=== PATIENT | male | born 1955 | race Caucasian/White ===

== ENCOUNTER 2019-11-15 19:43 | Inpatient (IN) ==
[2019-11-15 20:54] LABS: URINE SOURCE CLEAN CATCH
[2019-11-15 20:58] LABS: BASO# 0.01 X1000 (0.0-0.2); BASO% 0.2 % (0.0-0.8); EOS# 0.01 X1000 (0.0-0.7); EOS% 0.2 % (0.0-10.0); HEMATOCRIT 35.9 % (42.0-52.0); HEMOGLOBIN 11.3 g/dL (14.0-18.0); LYMPH# 1.05 X1000 (1.2-3.4); LYMPH% 17.9 % (20.5-51.1); MCH 31.7 PG (27-31); MCHC 31.5 g/dL (33-37); MCV 100.8 FL (81-99); MONO# 0.44 X1000 (0.11-0.59); MONO% 7.5 % (1.7-9.3); MPV 8.9 FL (7.4-10.4); NEUT# 4.35 X1000 (1.4-6.5); NEUT% 74.2 % (42.2-75.2); PLT 301 X1000 (130-400); RBC 3.56 XMIL (4.7-6.1); RDW 17.3 % (11.5-14.5); WBC 5.86 X1000 (4.8-10.8)
[2019-11-15 21:07] LABS: INR 1.87; PROTIME 21.9 Seconds (11.0-16.0)
[2019-11-15 21:08] LABS: PTT 57.4 Seconds (22.3-41.8)
[2019-11-15 21:15] LABS: BILIRUBIN URINE NEGATIVE (NEGATIVE); BLOOD URINE TRACE (NEGATIVE); COLOR YELLOW; GLUCOSE URINE NEGATIVE (NEGATIVE); KETONE URINE TRACE mg/dL (NEGATIVE); LEUKOCYTES URINE NEGATIVE (NEGATIVE); NITRITE URINE NEGATIVE (NEGATIVE); PH URINE 5.5; PROTEIN URINE 30 mg/dL (NEGATIVE); SP GRAVITY URINE 1.032; TURBIDITY URINE CLEAR (CLEAR); UR EPITHELIAL CELLS <10 /HPF (<10); URINE BACTERIA NEGATIVE /HPF; URINE RBC <10 /HPF (<10); URINE WBC <10 /HPF (<10); UROBILINOGEN URINE NORMAL (NORMAL)
--- NOTE | 2019-11-15 21:27 | Diag Imaging Result Doc PS360 ---
EXAM: CHEST-PORTABLE INDICATION: sob TECHNIQUE: One view COMPARISON: 10/03/2017 FINDINGS: There is a calcified granuloma at the left costophrenic angle. The lungs are grossly clear. There is no discrete pleural fluid collection or pneumothorax. The cardiomediastinal silhouette and central vasculature are grossly unremarkable. IMPRESSION: No evidence of acute pathology by plain radiograph. Electronically signed by Chester Darling 11/15/2019 9:24 PM
[2019-11-15] MEDS ORDERED: DUONEB (A & A) INH ONE (21:29)
[2019-11-15] MEDS ORDERED: SOLU-MEDROL IV ONE (21:29)
[2019-11-15 21:35] LABS: AGAP 18; ALB/GLOB RATIO 1.4; ALKALINE PHOSPHATASE 62 U/L (32-122); BUN 37 mg/dL (8-22); CALCIUM 8.6 mg/dL (8.8-10.2); CHLORIDE 100 mmol/L (98-107); COSMO 287; CREATININE 1.4 mg/dL (0.7-1.2); ESTIMATED GFR 51; GLUCOSE 87 mg/dL (70-104); GOT 16 U/L (10-34); GPT 5 U/L (10-44); SODIUM 140 mmol/L (136-145); TCO2 22 mmol/L (25-35); TOTAL PROTEIN 6.8 g/dL (6.3-8.3)
[2019-11-15 21:39] LABS: CK PROFILE 228 U/L (24-204); TOTAL BILIRUBIN < 0.15 mg/dL (0.20-1.00)
[2019-11-15 23:13] LABS: CK INDEX 2.9 (0.0-2.5); CK-MB 6.51 ng/mL (0.0-5.0)
--- NOTE | 2019-11-16 00:20 | PROVIDER DOCUMENTATION ---
This chart was entered by Megan Darling Scribe, acting as scribe for Blanca Rose MD. HPI-Respiratory General - General Chief Complaint: Shortness of Breath Stated Complaint: SOB AMS Time Seen by Provider: 11/15/19 20:00 Source: RN/ Allergies/Adverse Reactions: Patient Allergies Allergy/AdvReac Type Severity Reaction Status Date / Time acetaminophen [From Lortab] Allergy Intermediate HIVES Verified 08/02/18 21:29 hydrocodone bitartrate * Allergy Intermediate HIVES Verified 08/02/18 21:29 [From Lortab] Home Medications: Home Medication List Medication Instructions Recorded Confirmed Last Taken Type Alprazolam [Xanax] 0.5 mg PO HS 09/03/16 09/03/16 11/15/19 History Amlodipine [Norvasc] 5 mg PO DAILY 09/03/16 09/03/16 Unknown History Buspirone [Buspar] 10 mg PO BID 09/03/16 09/03/16 Unknown History Fenofibrate [Tricor] 160 mg PO DAILY 09/03/16 09/03/16 Unknown History Losartan [Cozaar] 12.5 mg PO DAILY 09/03/16 09/03/16 Unknown History Montelukast [Singulair] 10 mg PO QHS 09/03/16 09/03/16 Unknown History PRAVAstatin [Pravachol] 80 mg PO DAILY 09/03/16 09/03/16 Unknown History Tadalafil [Cialis] 5 mg PO 09/03/16 Unknown History Venlafaxine E.r. [Effexor Xr] 150 mg PO DAILY 09/03/16 09/03/16 Unknown History Zolpidem Tartrate [Ambien] 10 mg PO HS 09/03/16 09/03/16 Unknown History Diltiazem C.d. [Cardizem C.d] 180 mg PO DAILY #30 capsule 09/08/16 Unknown Rx Levofloxacin [Levaquin] 750 mg PO DAILY #7 tablet 09/08/16 Unknown Rx Prednisone 20 mg PO BID #10 tab 08/03/18 Unknown Rx - History of Present Illness-Resp Nature of Presenting Problem: 64 yom c/o increasing sob for few days. pt is poor hx. no cp, fever, or chills. Quality of Pain: reports: none Severity in ED: reports: mild Onset/Duration: reports: other Timing: reports: still present, getting worse Cough Quality/Degree: reports: no cough Current Respiratory Medication Therapy: Initiated see nurses note Modifying Factors: improves with: nothing Associated Symptoms: reports: short of breath Review of Systems - Adult - REVIEW OF SYSTEMS - ADULT Constitutional: reports: no symptoms reported. denies: chills, fever, fatique Eyes: reports: no symptoms reported Ears, Nose, Mouth & Throat: reports: no symptoms reported Cardiovascular: reports: no symptoms reported Respiratory: reports: see HPI, shortness of breath. denies: cough, excessive sputum production, hemoptysis Gastrointestinal: reports: no symptoms reported Genitourinary: reports: no symptoms reported Musculoskeletal: reports: no symptoms reported Integumentary: reports: no symptoms reported Neurological: reports: no symptoms reported Psychiatric: reports: no symptoms reported Endocrine: reports: no symptoms reported Hematologic/Lymphatic: reports: no symptoms reported Allergic/Immunologic: reports: no symptoms reported All Other Systems: Reviewed and Negative Past History - Adult - PAST MEDICAL HISTORY-ADULT Review of Records: reports: Nursing Assessment Review, Medications Reviewed, Social history reviewed & non-contributory. Major Childhood Illnesses: reports: denies history Cardiovascular: reports: HTN, hyperlipidemia Respiratory: reports: COPD Gastrointestinal: reports: denies history Obstetrical/Gynecological: reports: denies history Genitourinary: reports: denies history Musculoskeletal: reports: denies history Neurological: reports: denies history Psychiatric: reports: denies history Endocrine/Immune: reports: denies history Other Conditions: reports: denies history - PRIOR SURGERIES/PROCEDURES Surgical/Procedure History: reports: reviewed, not pertinent, back/neck (back) - IMMUNIZATION STATUS Childhood Immunizations: See Nurse Assessment Flu Vaccine: See Nurse Assessment - FAMILY HISTORY Family History: reviewed, not pertinent - SOCIAL HISTORY Smoking: cigarettes, greater than 1 pack/day Substance Use: alcohol Alcohol Use Frequency: occasionally Physical Exam-General - PHYSICAL EXAM-ADULT Initial Vital Signs Reviewed: Yes - CONSTITUTIONAL General Appearance: alert, mild distress, slow to respond. negative: lethargic, combative - EYES Eyes: PERRL/EOMI - HEAD, EARS, NOSE, MOUTH & THROAT HENMT: normocephalic/atraumatic, moist mucous membranes - NECK Neck: non-tender, full range of motion, supple, normal inspection - RESPIRATORY Respiratory: chest non-tender, normal breath sounds, no pleuratic chest pain, no respiratory distress, no accessory muscle use, wheezing (diffusely and bilat). negative: lungs clear, crackles, rales - CARDIOVASCULAR Cardiovascular: normal peripheral pulses, regular rate, rhythm - GASTROINTESTINAL (ABDOMEN) Abdominal Exam: normal bowel sounds, non tender, soft - MUSCULOSKELETAL Back Exam: normal inspection Extremity: normal range of motion, non-tender, normal inspection - SKIN Integumentary: normal color, normal turgor, warm/dry Progress - PLAN OF CARE/RESULTS Progress/Plan/Lab Results: Vital Signs - 8 hr 11/15/19 19:45 11/15/19 21:30 11/15/19 22:30 Temperature 97.7 F 98.6 F Pulse Rate 60 57 L 60 Respiratory Rate 24 20 20 Blood Pressure 121/80 125/58 119/53 O2 Sat by Pulse Oximetry 91 L 92 L 95 11/15/19 23:30 Temperature Pulse Rate 57 L Respiratory Rate 20 Blood Pressure 97/58 O2 Sat by Pulse Oximetry 97 Laboratory Results - last 24 hr 11/15/19 11/15/19 11/15/19 20:15 20:20 20:20 WBC RBC Hgb Hct MCV MCH MCHC RDW Std Deviation Plt Count MPV Neut % (Auto) Lymph % (Auto) Sampson % (Auto) Eos % (Auto) Baso % (Auto) Neut # (Auto) Lymph # (Auto) Sampson # (Auto) Eos # (Auto) Baso # (Auto) PT INR PTT (Actin FS) Sodium 140 Potassium 4.0 Chloride 100 Carbon Dioxide 22 L Anion Gap 18 BUN 37 H Creatinine 1.4 H Estimated GFR/1.73 m2 51 BUN/Creatinine Ratio 26 Glucose 87 Calculated Osmolality 287 Calcium 8.6 L Total Bilirubin < 0.15 L AST 16 ALT 5 L Alkaline Phosphatase 62 Creatine Kinase 228 H Creatine Kinase Index 2.9 H CK-MB (CK-2) 6.51 H Troponin T High Sens Yuh-P-Qbrzxoaermn Pept 585 H Total Protein 6.8 Albumin 4.0 Globulin 2.8 Albumin/Globulin Ratio 1.4 Plasma Lactate Urine Source CLEAN CATCH Urine Color YELLOW Urine Turbidity CLEAR Urine pH 5.5 Ur Specific Johnston 1.032 Urine Protein 30 A Ur Glucose (Stick) NEGATIVE Ur Ketones (Stick) TRACE A Urine Blood TRACE A Urine Nitrite NEGATIVE Urine Bilirubin NEGATIVE Urobilinogen Dipstick NORMAL Urine Leukocytes NEGATIVE Urine WBC (Auto) <10 Urine RBC (Auto) <10 U Epithel Cells (Auto) <10 Urine Bacteria (Auto) NEGATIVE 11/15/19 11/15/19 11/15/19 20:20 20:20 20:20 WBC 5.86 RBC 3.56 L Hgb 11.3 L Hct 35.9 L MCV 100.8 H MCH 31.7 H MCHC 31.5 L RDW Std Deviation 17.3 H Plt Count 301 MPV 8.9 Neut % (Auto) 74.2 Lymph % (Auto) 17.9 L Sampson % (Auto) 7.5 Eos % (Auto) 0.2 Baso % (Auto) 0.2 Neut # (Auto) 4.35 Lymph # (Auto) 1.05 L Sampson # (Auto) 0.44 Eos # (Auto) 0.01 Baso # (Auto) 0.01 PT 21.9 H INR 1.87 PTT (Actin FS) 57.4 H Sodium Potassium Chloride Carbon Dioxide Anion Gap BUN Creatinine Estimated GFR/1.73 m2 BUN/Creatinine Ratio Glucose Calculated Osmolality Calcium Total Bilirubin AST ALT Alkaline Phosphatase Creatine Kinase Creatine Kinase Index CK-MB (CK-2) Troponin T High Sens 24 H [id number]-Unqcpgcahoz Pept Total Protein Albumin Globulin Albumin/Globulin Ratio Plasma Lactate Urine Source Urine Color Urine Turbidity Urine pH Ur Specific Johnston Urine Protein Ur Glucose (Stick) Ur Ketones (Stick) Urine Blood Urine Nitrite Urine Bilirubin Urobilinogen Dipstick Urine Leukocytes Urine WBC (Auto) Urine RBC (Auto) U Epithel Cells (Auto) Urine Bacteria (Auto) 11/15/19 20:20 WBC RBC Hgb Hct MCV MCH MCHC RDW Std Deviation Plt Count MPV Neut % (Auto) Lymph % (Auto) Sampson % (Auto) Eos % (Auto) Baso % (Auto) Neut # (Auto) Lymph # (Auto) Sampson # (Auto) Eos # (Auto) Baso # (Auto) PT INR PTT (Actin FS) Sodium Potassium Chloride Carbon Dioxide Anion Gap BUN Creatinine Estimated GFR/1.73 m2 BUN/Creatinine Ratio Glucose Calculated Osmolality Calcium Total Bilirubin AST ALT Alkaline Phosphatase Creatine Kinase Creatine Kinase Index CK-MB (CK-2) Troponin T High Sens Rcj-[id number]-Oztrdskwmbi Pept Total Protein Albumin Globulin Albumin/Globulin Ratio Plasma Lactate 0.6 Urine Source Urine Color Urine Turbidity Urine pH Ur Specific Johnston Urine Protein Ur Glucose (Stick) Ur Ketones (Stick) Urine Blood Urine Nitrite Urine Bilirubin Urobilinogen Dipstick Urine Leukocytes Urine WBC (Auto) Urine RBC (Auto) U Epithel Cells (Auto) Urine Bacteria (Auto) Orders Category Date Time Status Cardiac Monitoring DIRECTED Care 11/15/19 20:03 Active Isolation [Isolation Precautions Setup] NOW Care 11/15/19 20:09 Active NEWS Score 2-4:Order NEWS Lactate Series NOW Care 11/15/19 19:57 Active Oxygen Therapy- ED Nursing DIRECTED Care 11/15/19 20:03 Active CHEST-PORTABLE [RAD] Stat Exams 11/15/19 20:16 Completed BLOOD CULTURE [BLDCUL] Stat Lab 11/15/19 20:30 Results CBC WITH ELECTRONIC DIFF [HEME] Stat Lab 11/15/19 20:20 Completed CK PROFILE [SP CHEM] Stat Lab 11/15/19 20:20 Completed COMPREHENSIVE METABOLIC PANEL [CHEM] Stat Lab 11/15/19 20:20 Completed LACTATE, PLASMA [CHEM] Lab 11/16/19 00:30 Uncollected LACTATE, PLASMA [CHEM] Lab 11/16/19 03:30 Uncollected LACTATE, PLASMA [CHEM] Q3H Lab 11/15/19 20:20 Completed PRO B-NATRIURETIC PEPTIDE Stat Lab 11/15/19 20:20 Completed PROTIME WITH INR [COAG] Stat Lab 11/15/19 20:20 Completed PTT [COAG] Stat Lab 11/15/19 20:20 Completed TROPONIN T HIGH SENSITIVITY Stat Lab 11/15/19 20:20 Completed URINALYSIS W/POSS RFLX CULT [URINALYSIS] Stat Lab 11/15/19 20:15 Completed Albuterol 2.5MG/Ipratrop 0.5MG [Duoneb (A & A)] Med 11/15/19 21:29 Discontinued 3 ml INH NOW ONE Methylprednisolone Sod Succ [Solu-Medrol] Med 11/15/19 21:29 Discontinued 125 mg IV NOW ONE Aerosol Treatments Routine Oth 11/15/19 21:29 Active Aerosol Treatments Stat Oth 11/15/19 21:29 Active CP/SOB/Palp >45 yrs of Age Stat Oth 11/15/19 20:03 Ordered EKG [EKG] Stat Ther 11/15/19 20:03 Ordered Result Diagrams: 11/15/19 20:20 11/15/19 20:20 - EKG 1 Time of EKG reading by physician:: 22:35 EKG Read and Signed by:: Blanca Rose EKG Interpretation (*Must complete 3 of following elements*): Abnormal Rate: 60 Rhythm: SR w/PACs Converse: normal QRS: normal OH Interval: normal ST Wave: normal Comments: spetal infarct, age undetermined - XRAY 1 XRAY Study: Chest Impression: Normal, See EMR Report ( EXAM: CHEST-PORTABLE INDICATION: sob TECHNIQUE: One view COMPARISON: 10/03/2017 FINDINGS: There is a calcified granuloma at the left costophrenic angle. The lungs are grossly clear. There is no discrete pleural fluid collection or pneumothorax. The cardiomediastinal lia houette and central vasculature are grossly unremarkable. IMPRESSION: No evidence of acute pathology by plain radiograph. Electronically signed by Chester Darling 11/15/2019 9:24 PM) - CONSULTS/PCP/HOSPITALIST Notification #1 *Consult/PCP/Hospitalist*: Hospitalist Time Discussed: 00:20 Consult Disposition: Admit Departure - Departure Date of Disposition Decision: 11/16/19 Time of Disposition Decision: 00:20 DIAGNOSIS: COPD exacerbation Disposition: ADMITTED INPATIENT 09 Certified Medical Emergency: Emergent Condition: Stable Referrals and Follow-Ups: Saad Colby MD [Primary Care Provider] - - Critical Care Note This patient required my direct & personal management of CC.: No Attestation - Physician/ DAR Attestation Patient care was provided by Advanced Practice Provider:: No The physician spent face to face time with patient:: Yes Advanced Practice Provider documentation review:: Supervising physician onsite and consulted in the evaluation and care of this patient. The physician did have a face to face encounter with the patient. This chart was documented by the indicated scribe, (Megan Darling Scribe) and accurately reflects the services I performed and decisions made by me, Blanca Croft MD, as attested by the provider's signature.
[2019-11-16 05:17] LABS: ALLEN TEST YES; BE -6.5 mmoll (-3.0-3.0); BLOOD TYPE ARTERIAL; HCO3-(ACT) 19.6 mmoll (20.0-26.0); O2(CT) 17.3 mL/dL (15.0-23.0); PCO2(98.6) 41 mmHg (35-45); PO2(98.6) 85 mmHg (60-100); SAMPLE BLOOD; SAO2 93.5 % (95.0-100.0); THB 13.8 g/dL (11.5-17.4); pH(98.6) 7.29 (7.35-7.45)
[2019-11-16 05:21] LABS: METHB 3.4 % (0.0-1.5)
[2019-11-16 05:26] LABS: MODALITY CANNULA; O2HB 88.7 % (95.0-99.0)
[2019-11-16 07:31] LABS: UR AMPHETAMINES QUAL NONE DETECTED (NONE DETECT); UR BARBITUATES QUAL NONE DETECTED (NONE DETECT); UR BENZODIAZEPIN QUAL NONE DETECTED (NONE DETECT); UR CANNABINOIDS QUAL NONE DETECTED (NONE DETECT); UR COCAINE QUAL NONE DETECTED (NONE DETECT); UR METHADONE QUAL NONE DETECTED (NONE DETECT); UR OPIATES QUAL NONE DETECTED (NONE DETECT); UR OXYCODONE QUAL NONE DETECTED (NONE DETECT); UR PCP QUAL NONE DETECTED (NONE DETECT)
--- NOTE | 2019-11-16 07:48 | HISTORY AND PHYSICAL ---
CHIEF COMPLAINT: Shortness of breath. HISTORY OF PRESENT ILLNESS: The patient is a 64-year-old with a history of atrial fibrillation, chronic hypoxic respiratory failure on 2 L, COPD, hypertension, obstructive sleep apnea on CPAP, who presents with shortness of breath. The patient is a poor historian. As such, could not really get any information from him. The patient was noted to be wheezing in the ER, required breathing treatments, did not have any fever. The patient's wheezing improved with breathing treatment. At the time I was seeing the patient, he was not wheezing at all. However, he was noted to be requiring up to 4 L of intravenous oxygen. As such, patient was admitted to the hospital for acute on chronic respiratory failure. We will treat the patient for COPD with DuoNebs, steroids. Unlikely this is COVID-19, as he has no fever. His shortness of breath improved significantly with breathing treatment. No infiltrates are on the chest x-ray. We will check a proBNP to rule out any cardiac cause of the patient's worsening shortness of breath and consider doing a 2D echo if significantly elevated. Would titrate patient gradually back to home oxygen 2 L, and expect improvement in patient's oxygenation with treatment. I did evaluate this patient; see the nurse practitioner's history of physical note for complete [facility]
[2019-11-16 07:59] LABS: HEMATOCRIT 38.5 % (42.0-52.0); HEMOGLOBIN 11.8 g/dL (14.0-18.0); LYMPH# 0.21 X1000 (1.2-3.4); LYMPH% 2.4 % (20.5-51.1); MCH 30.9 PG (27-31); MCHC 30.6 g/dL (33-37); MCV 100.8 FL (81-99); MONO# 0.02 X1000 (0.11-0.59); MONO% 0.2 % (1.7-9.3); MPV 9.1 FL (7.4-10.4); NEUT# 8.38 X1000 (1.4-6.5); NEUT% 97.4 % (42.2-75.2); PLT 272 X1000 (130-400); RBC 3.82 XMIL (4.7-6.1); RDW 17.4 % (11.5-14.5); WBC 8.61 X1000 (4.8-10.8)
--- NOTE | 2019-11-16 08:05 | EKG Report ---
Test Performed on : 11/16/2019 07:03:54 AM Test Reason : Elevated Cardiac Enzymes Blood Pressure : / mmHG Vent. Rate : 053 BPM Atrial Rate : 053 BPM P-R Int : 146 ms QRS Dur : 084 ms QT Int : 362 ms P-R-T Axes : 049 037 082 degrees QTc Int : 339 ms Sinus bradycardia. with premature atrial complexes. Septal infarct (cited on or before 15-NOV-2019) Abnormal ECG When compared with ECG of 15-NOV-2019 22:32, (Unconfirmed) No significant change was found Confirmed by Stephany PHELAN, Alfonso Bradshaw ([id number]) on 11/16/2019 5:31:16 PM
[2019-11-16 08:09] LABS: INR 1.43; PROTIME 17.7 Seconds (11.0-16.0)
--- NOTE | 2019-11-16 08:09 | EKG Report ---
Test Performed on : 11/15/2019 10:32:23 PM Test Reason : sob Blood Pressure : / mmHG Vent. Rate : 060 BPM Atrial Rate : 060 BPM P-R Int : 158 ms QRS Dur : 074 ms QT Int : 366 ms P-R-T Axes : 042 070 062 degrees QTc Int : 366 ms Sinus rhythm. with premature atrial complexes. Septal infarct , age undetermined Abnormal ECG When compared with ECG of 02-AUG-2018 21:34, premature atrial complexes. are now present Unconfirmed Result
[2019-11-16 08:21] LABS: AGAP 18; ALB/GLOB RATIO 1.4; ALKALINE PHOSPHATASE 66 U/L (32-122); BUN 32 mg/dL (8-22); CALCIUM 9.2 mg/dL (8.8-10.2); CHLORIDE 104 mmol/L (98-107); CK PROFILE 169 U/L (24-204); COSMO 288; ESTIMATED GFR > 60; GLUCOSE 102 mg/dL (70-104); GOT 15 U/L (10-34); GPT 5 U/L (10-44); MAGNESIUM 2.3 mg/dL (1.5-2.7); POTASSIUM 4.2 mmol/L (3.5-5.1); SODIUM 141 mmol/L (136-145); TCO2 19 mmol/L (25-35); TOTAL PROTEIN 6.8 g/dL (6.3-8.3)
[2019-11-16 08:34] LABS: TOTAL BILIRUBIN < 0.15 mg/dL (0.20-1.00)
[2019-11-16 09:07] LABS: ANISOCYTOSIS 2+; HYPOCHROM 1+; LYMPHS 3 % (21-51); SEGS 97 % (42-75)
--- NOTE | 2019-11-16 09:32 | PROGRESS NOTE ---
DATE: 11/16/2019 This is a 64-year-old history of atrial fibrillation, chronic hypoxemic respiratory failure on 2 L at home, COPD, hypertension, obstructive sleep apnea on CPAP. Presented with shortness of breath. He could not really give much information, was admitted last night early this morning, put him on 4 L of oxygen. He seems to be more alert and awake and oriented this morning. We feel he is unlikely to have a viral infection, but looks like an exacerbation of COPD and because of confusion, unsure of his home medicines. He was awake when I saw him and ready to eat breakfast. His urine drug screen was negative. Chest x-ray, no evidence of acute pathology. No sign of infiltrate. HOME MEDICATIONS: He is on BuSpar 10 mg twice a day, Bentyl 20 mg twice a day, diltiazem CD 180 mg daily, Tricor 160 mg a day, Flonase 50 mcg 1 puff to each nostril every day, Advair 250-50, one puff a day. He was taking Levaquin 750 mg p.o. daily, and Cozaar 12.5 mg daily, Singulair 10 mg at bedtime, Pravachol 80 mg daily, Effexor ER 150 mg daily, Ambien 10 mg at bedtime. REVIEW OF ORDERS: At the present time, he is on methylprednisone, getting albuterol ipratropium breathing treatments. cc: Alfonso Hammond MD
[2019-11-16 11:55] LABS: ALLEN TEST NO; BE -1.9 mmoll (-3.0-3.0); BLOOD TYPE ARTERIAL; HCO3-(ACT) 23.2 mmoll (20.0-26.0); PCO2(98.6) 43 mmHg (35-45); PO2(98.6) 89 mmHg (60-100); SAMPLE BLOOD; SAO2 95.7 % (95.0-100.0); THB 10.7 g/dL (11.5-17.4); pH(98.6) 7.35 (7.35-7.45)
[2019-11-16 12:04] LABS: METHB 7.4 % (0.0-1.5); MODALITY VENTIMASK; O2HB 85.6 % (95.0-99.0)
--- NOTE | 2019-11-16 12:45 | HISTORY AND PHYSICAL ---
PRIMARY CARE PROVIDER: Dr. Domingo. CHIEF COMPLAINT: Shortness of breath. HISTORY OF PRESENT ILLNESS: Mr. Peterson is a 64-year-old, male, who is unfortunately a poor historian. It was difficult to obtain history of present illness, past medical history, and even current symptoms from him. After speaking with the patient, I was able to obtain that he has been becoming increasingly more short of breath over the past few days. He denies any reported fever, body aches, or chills. He has reported an occasional cough. The patient states he does have seasonal allergies, and that is acting up at this time as well. The patient does have a history of COPD. He does continue to smoke at this time. He previously reports, and it was noted upon a discharge summary from a few years ago, that the patient is supposed to be on home oxygen. He also does have a history of sleep apnea, and is supposed to wear, I believe, CPAP at night, though the patient states that he is not doing either of these right now, he is not wearing home oxygen and is not wearing a CPAP or BiPAP at night to sleep. I asked the patient if it was because his breathing and his oxygen improved and they took him off oxygen, or he was supposed to wear oxygen and has just chosen not to. The patient states that he has chosen not to, though as previously mentioned, he is a poor historian, and I am uncertain if this information is correct. He was noted in the ER to be mildly hypoxic on room air with an oxygen saturation of 91. He has been placed on nasal cannula 4 L. His oxygen saturations have improved. He was also noted to have wheezing after receiving a breathing treatment. Upon reassessing his lung sounds, his lung sounds were clear to auscultation in bilateral full an, though he was slightly diminished in bilateral bases. The patient was noted to be altered upon arrival as well. Upon my initial assessment, he was very drowsy. I would have to arouse him with verbal and tactile stimulation. He would only stay awake for a brief few seconds, and would fall immediately back to sleep. Though upon reassessment approximately an hour or so later, the patient was more alert. He was sitting up in bed. He was awake. He was able to answer questions, though was slow to respond to questions. He did have to be prompted more than once to answer a question. He does have some reported hearing loss. Though he is alert and oriented to person, place, time, and mostly situation, he is just not good with questions related to history of present illness and past medical history. Though he did not have any facial droop noted, EOMs were intact. He did not have any slurred speech. His speech was clear and understandable. He had equal muscle strength in hand grasps bilaterally, though did appear to have some generalized weakness noted. He had no arm drift noted. He denies any pain, numbness, tingling, or swelling in extremities. The patient states that he has felt just tired and not had a lot of energy over the past few days. I do believe likely that some his symptoms related to his fatigue and confusion are related to hypoxia. He denies any headache, dizziness, chest pain, abdominal pain, nausea, vomiting, or diarrhea. He denies any hematochezia or melena. He denies any dysuria. Upon evaluation in the ER, the patient did not have any fever, and he has been afebrile since arrival. He was, as previously mentioned, 91% on room air. He has since been placed on nasal cannula at 4 L. The patient has been mildly bradycardic since he arrived with a heart rate in the mid-to-low 50s. EKG showed a sinus rhythm with premature atrial complexes at a rate of 60 with a QTc of 366. Chest x-ray showed no acute abnormality. He had no leukocytosis noted. Arterial blood gases did show a PO2 of 85, oxyhemoglobin of 88.7, and O2 saturation 93.5. These were obtained on nasal cannula 4 L with FiO2 of 36%. We have since increased his oxygen. We will repeat arterial blood gases later on this morning. He initially did have elevated CK enzymes and a slightly elevated troponin T high-sensitivity of 24. His proBNP was 585, creatinine was 1.4 with a GFR of 51. Though upon repeat labs later on this morning, his renal function has returned to baseline. His CK and troponin are within normal limits. Urinalysis did not show any signs of infection. Urine drug screen was negative. The patient was placed on the medical floor with telemetry. REVIEW OF SYSTEMS: A 14-point review of systems was conducted with the patient, and all were negative, except for pertinent positives mentioned in the above HPI. PAST MEDICAL HISTORY: Past medical history was obtained from the patient, though mostly from previous consultations and history and physicals. 1. Sleep apnea. 2. Hypertension. 3. Hyperlipidemia. 4. Atrial fibrillation. 5. COPD, and from what I understand, was previously supposed to be on home oxygen. 6. Nicotine dependence. PAST SURGICAL HISTORY: 1. Cervical fusion. 2. Back surgery. SOCIAL HISTORY: The patient does currently smoke 1 pack per day. He has smoked for a period of 50 years. He denies any alcohol or illicit drug use. He states he does live at home with his . He states that he does not require ambulatory assistance. FAMILY HISTORY: Positive for heart disease. HOME MEDICATIONS: At this time, we are waiting for the patient's home medication list to be reconciled. The patient reports he [place] [facility] [place] We will try to contact them or we can contact his at home to see if she can verify and update his home medications. ALLERGIES: The patient has allergies to hydrocodone and acetaminophen. DIAGNOSTIC DATA: White blood cell count is 5860, hemoglobin 11.3, hematocrit 35.9, platelet count is 301,000. PT 21.9, INR 1.87, with a repeat this morning of 1.4. PTT is 57.4. Sodium 140, potassium 4, chloride 100, serum bicarb is 22, BUN 37, creatinine 1.4, with a GFR of 51, glucose 87, calcium 8.6. Magnesium 2.3. Liver function tests are within normal limits. CK 228, CK index 2.9, CK-MB 6.51, though repeat CK later on this morning was 169. Troponin T high-sensitivity was 24, with a repeat of 19. ProBNP is 585. Plasma lactate was 0.6. Arterial blood gases were obtained on nasal cannula at 4 L with FiO2 of 36%, pH was 7.29, pCO2 of 41, PO2 of 85, HC03 is 19.6, with a base excess of -6.5, oxyhemoglobin is 88.7, O2 saturation is 93.5. [*] is 3.4. Urine drug screen was negative. Urinalysis was obtained via clean catch and was positive for protein, ketones, and trace blood, though was negative for glucose, nitrites, bilirubin, leukocytes, white blood cells, or bacteria. EKG showed sinus rhythm with premature atrial complexes at a rate of 60, with a QTc of 366. Chest x-ray showed no acute abnormalities. PHYSICAL EXAMINATION: VITAL SIGNS: Temperature 98.4 degrees, heart rate 51, respirations 19, blood pressure is 103/52, with a map of 62, oxygen saturation was 92% on nasal cannula at 5 L. GENERAL: Mr. Peterson is a 64-year-old, male, who is resting in the ER stretcher. He was in no acute distress. He was awake, alert, and able answer questions, though he was slow to respond to questions, and did have to be prompted more than once on many different occasions to answer a question, though the patient does have some hearing loss. He is alert and oriented to person, place, time, and situation. HEENT: Head is atraumatic, normocephalic. Pupils are equal, round, reactive to light, were 3 mm bilaterally and brisk. Oral mucosa is moist. Oropharynx clear. NECK: Supple. Trachea midline. CARDIOVASCULAR: The patient has S1 and S2 present. He did have a systolic murmur noted, though no other rubs or gallops appreciated. PULMONARY: The patient has symmetrical chest expansion bilaterally. Lung sounds are clear to auscultation in bilateral upper an, though he did have some slightly diminished lung sounds in bilateral bases. ABDOMEN: Soft, nontender, nondistended. Bowel sounds are present in all 4 quadrants and were normoactive. EXTREMITIES: No cyanosis or edema noted. Pulse, motor, and sensory were intact in all extremities. Radial pulses were 2+ bilaterally. Pedal pulses were 1+ bilaterally. INTEGUMENTARY: The patient's skin is pink, warm, and dry. NEUROLOGICAL: The patient is alert and oriented to person, place, time, and situation. He does seem a little slow to respond to questions, and many times did have to be prompted more than once to answer questions. He was noted to be confused upon arrival in the ER, and upon my initial exam, the patient was very drowsy, though this does seem to have improved markedly. He has equal muscle strength in hand grasps bilaterally, though does appear to have some overall generalized weakness. He has no arm drift noted. He has no facial droop present. EOMs were intact. He denies any numbness or tingling. His speech is clear and understandable. ASSESSMENT AND PLAN: 1. Chronic obstructive pulmonary disease exacerbation. For treatment of this, we have placed the patient with scheduled DuoNeb treatments. Will provide some Solu-Medrol 40 mg intravenously every 12 hours. Will continue with aggressive pulmonary toilet with incentive spirometry, frequent encouragement to turn, cough, and deep breathing, as well as his supplemental oxygen. Will continue to monitor this closely. 2. Acute hypoxic respiratory failure. This is likely secondary to his chronic obstructive pulmonary disease, though the patient does have a slightly elevated proBNP. He did have a heart murmur noted. We will continue to rule out any cardiac involvement that may be contributing to his respiratory symptoms. Also, the patient previously was supposed to be on home oxygen, though he states at this time that he does not wear oxygen at home. He also has sleep apnea and states that he is not wearing his continuous positive airway pressure or bilevel positive airway pressure. I would recommend prior to discharge that the patient have an exercise tolerance test with oxygen, as well as evaluation for home oxygen, though this will need to be done once his respiratory status has improved. Will continue to monitor. 3. Encephalopathy. This does appear to have improved since the patient's arrival. He does not have any focal neurological deficits noted. He does not have a urinary tract infection. His fingerstick blood sugars have been within normal limits. I do believe this is likely secondary to the patient's hypoxia. This has improved as his oxygen saturations have improved. We will continue to monitor this closely. He will be on continuous cardiac telemetry. He will receive every 4 hours vital signs and neurological checks. 4. History of hypertension. The patient's blood pressure at this time is within normal limits, though it is running on the lower side of normal with the last blood pressure of 103/52 with a MAP of 62. Given this, we will hold any antihypertensive medications. We will implement only if necessary. We are trying to obtain the patient's home medications. 5. History of atrial fibrillation. The patient actually has been bradycardic since being here. I am not sure what rate control medicines he is on or if he is actually still taking any of these. We are trying to verify his home medicines. We will continue to monitor. He is on continuous cardiac telemetry. 6. Elevated cardiac enzymes. These actually have, upon recheck, decreased and are within normal limits. The patient is denying any chest pain. He does not have any acute electrocardiogram changes noted, though he has been slightly bradycardic since he has been here. We are continuing with a series of cardiac enzymes. We will also repeat an electrocardiogram later on this morning. We have also ordered an echocardiogram. 7. Venous thromboembolism prophylaxis will be provided with sequential compression devices. 8. Nicotine dependence. The patient will be counseled upon the importance of smoking cessation throughout his admission and upon discharge. The patient has been placed on the medical floor with telemetry. He will have vital signs every 4 hours with strict intake and output and incentive spirometry. We have implemented plan aspiration precautions as well. He will be on a heart healthy diet. We are going to repeat arterial blood gases later on this morning. Further orders and recommendations pending hospital course, diagnostic studies, and physician evaluation. Dictated by JOHN Rubio for Chuckie Lindsay MD
[2019-11-16] MEDS: ZOFRAN IV PRN (13:27)
[2019-11-16] MEDS: SOLU-MEDROL IV SCH (13:28)
[2019-11-16] MEDS: DUONEB (A & A) INH SCH ×3 (14:57→22:08)
[2019-11-17] MEDS: SOLU-MEDROL IV SCH ×3 (01:21→23:41)
[2019-11-17] MEDS: DUONEB (A & A) INH SCH ×4 (03:40→22:35)
--- NOTE | 2019-11-17 13:50 | PROGRESS NOTE ---
DATE: 11/17/2019 SUBJECTIVE: The patient seems to be feeling a little bit better compared to yesterday. He has a history of chronic atrial fibrillation, hypoxemic respiratory failure on home O2, COPD, hypertension, sleep apnea, I think he has been on the CPAP machine at home. He was admitted and he was confused. His heart rate has been in the 50s and 60s but lately has been increasing to 97 and 86, he is on Cardizem CD at home and I will put him back on that but I do not see any blood thinners listed on his medications. The last time he was seen by Cardiology during a hospital stay was 3 years ago in 2017, at that time he was discharged with Cardizem CD as well daily, pravastatin, losartan and again I do not see any blood thinners listed at that time. At this moment he seems to be in sinus rhythm. I do not have so far any source of infection or anything that can explain his mental status changes other than COPD exacerbation and acute on chronic hypoxemic respiratory failure, his mental status changes have been improving and actually he is answering my questions, his answers are slow though. OBJECTIVE: Vital Signs: Temperature 98 degrees, pulse 86, respiratory rate 18, blood pressure 132/74 oxygen saturation 95 on a Venturi mask. HEENT: Head normocephalic, no trauma. PERRLA. Neck: Supple. No JVD. No masses. Central trachea. Chest: Decreased breath sounds globally with prolonged expiratory phase. Abdomen: Soft, nontender, nondistended. No hepatosplenomegaly. Extremities: No edema, no clubbing, no cyanosis. Neurological: This patient is awake. He is oriented x3. He also knows who is the vice president of nursing. He is following commands. I do not see any focal deficits. LABORATORY: Glucose 141. ASSESSMENT AND PLAN: 1. Chronic obstructive pulmonary disease exacerbation. Continue with same management for now. Continue with steroids and oxygen supplementation. 2. Acute on chronic hypoxemic respiratory failure likely due to #1. 3. Encephalopathy resolved. This patient's creatinine was elevated and probably he was dehydrated. I do believe the mental status changes are a combination of chronic obstructive pulmonary disease and acute kidney injury/dehydration. 4. History of hypertension. Continue with same management. 5. History of atrial fibrillation. This patient actually is on sinus rhythm. Continue with Cardizem, which is part of his home medications, he is not on blood thinners. 6. Elevated cardiac enzymes. It was just slightly elevated at 24 but we repeated 3 more times and they were completely normal. 7. Deep vein thrombosis prophylaxis with sequential compression devices. 8. Tobacco abuse. This patient has been highly advised against tobacco use. I will continue with daily cessation education. cc: Rosalio Ayers MD
[2019-11-17] MEDS: ZOFRAN IV PRN (16:09)
[2019-11-17] MEDS ORDERED: LOPRESSOR IV ONE ×2 (22:23→23:22)
[2019-11-17] MEDS ORDERED: LANOXIN IV ONE (22:23)
--- NOTE | 2019-11-17 22:38 | ECHO REPORT ---
ORDER DATE: 11/16/2019 MEASUREMENTS: 1. Septal thickness 1.4, left ventricular internal diameter in diastole 5.3, left ventricular internal diameter in systole 2.9, aortic root 3.6, left atrium 4.3. SUMMARY: 1. Fair quality study. 2. Moderate sclerotic changes of aortic valve leaflets demonstrated with mildly reduced aortic valve leaflet mobility. The aortic valve configuration is difficult to discern, but the aortic valve is probably trileaflet. The peak gradient across the aortic valve is 31 mmHg with a mean gradient of 18 mmHg. The calculated aortic valve area by Doppler is greater than 1.5 cm2. Mild aortic stenosis is suggested. There is mild aortic regurgitation. Mitral, tricuspid, and pulmonic valves are without evidence of structural abnormality with very mild mitral regurgitation and mild tricuspid regurgitation. The estimated systolic PA pressure by Doppler is 40 mmHg suggesting mild pulmonary hypertension. The aortic root is normal in size. 3. Normal left ventricular chamber size with mild concentric left hypertrophy is suggested. The estimated left ventricular ejection fraction is approximately 70%. No regional wall motion abnormality is evident. Left atrium is mildly enlarged. Right atrium and right ventricle are normal in size with normal right ventricular systolic function. 4. No pericardial effusion. 5. Appearance of inferior vena cava suggests normal central venous pressure. CONCLUSIONS: 1. Moderately sclerosed aortic valve probably trileaflet with mild aortic stenosis and mild aortic regurgitation. 2. Very mild mitral regurgitation. 3. Mild tricuspid regurgitation with mild pulmonary hypertension by Doppler. 4. Mild concentric left hypertrophy with estimated left ventricular ejection fraction of at least 70%. 5. Mild left atrial enlargement. cc: Ramesh Martinez MD
[2019-11-17] MEDS: SINGULAIR PO SCH (22:44)
[2019-11-18] MEDS ORDERED: CARDIZEM IV ONE (00:44)
[2019-11-18] MEDS ORDERED: NS 500 ML IV ONE (00:44)
[2019-11-18] MEDS ORDERED: CORDARONE 360 MG/D5W 360 MG/200 ML IV.SOLN IV ONE (03:36)
[2019-11-18] MEDS: DUONEB (A & A) INH SCH ×2 (03:43→16:24)
[2019-11-18 07:05] LABS: AGAP 9; ALB/GLOB RATIO 1.5; ALBUMIN 3.6 g/dL (3.5-5.0); ALKALINE PHOSPHATASE 51 U/L (32-122); BUN 16 mg/dL (8-22); CHLORIDE 101 mmol/L (98-107); COSMO 284; CREATININE 0.7 mg/dL (0.7-1.2); ESTIMATED GFR > 60; GLUCOSE 119 mg/dL (70-104); GOT 11 U/L (10-34); GPT 6 U/L (10-44); SODIUM 141 mmol/L (136-145); TCO2 31 mmol/L (25-35); TOTAL BILIRUBIN 0.19 mg/dL (0.20-1.00)
[2019-11-18 07:16] LABS: HEMATOCRIT 36.6 % (42.0-52.0); HEMOGLOBIN 11.2 g/dL (14.0-18.0); IMM GRAN# 0.04 X1000 (0.0-0.04); IMM GRAN% 0.6 % (0.0-0.5); LYMPH# 0.23 X1000 (1.2-3.4); LYMPH% 3.2 % (20.5-51.1); MCH 31.6 PG (27-31); MCHC 30.6 g/dL (33-37); MCV 103.4 FL (81-99); MONO% 2.8 % (1.7-9.3); MPV 9.5 FL (7.4-10.4); NEUT# 6.72 X1000 (1.4-6.5); NEUT% 93.4 % (42.2-75.2); PLT 279 X1000 (130-400); RBC 3.54 XMIL (4.7-6.1); WBC 7.19 X1000 (4.8-10.8)
[2019-11-18 08:04] LABS: ANISOCYTOSIS 1+; BANDS 6 % (0-1); HYPOCHROM 1+; LYMPHS 4 % (21-51); MONO 6 % (1-9); SEGS 84 % (42-75)
[2019-11-18] MEDS ORDERED: CORDARONE 540 MG in D5W 289.2 ML IV ONE (08:14)
[2019-11-18] MEDS: ATARAX PO SCH (10:04)
[2019-11-18] MEDS: PRAVACHOL PO SCH (10:04)
[2019-11-18] MEDS: CARDIZEM CD PO SCH ×2 (10:05→11:55)
[2019-11-18] MEDS: EFFEXOR XR PO SCH (10:05)
[2019-11-18] MEDS ORDERED: LOVENOX SUBQ ONE (10:46)
[2019-11-18] MEDS: FLONASE NAS SCH (10:55)
[2019-11-18] MEDS ORDERED: NS NEB INH SCH (11:00)
--- NOTE | 2019-11-18 11:35 | PROGRESS NOTE ---
DATE: 11/18/2019 SUBJECTIVE: This patient had an episode of atrial fibrillation RVR during the night. He was placed in the PVC unit and he is getting amiodarone drip. Apparently he has a history of atrial fibrillation in 2017. We talked to his and apparently he has not been on anticoagulation. As per the , the only treatment that he was getting was diltiazem by mouth, but no anticoagulation. I will give him a dose of Lovenox therapeutic. I will wait for Cardiology to see the patient. I will decrease the dose of the steroids and also I will put this patient on Xopenex instead of DuoNeb. PHYSICAL EXAMINATION: Vital Signs: Temperature 97.7 degrees, pulse 117, respiratory rate 12, blood pressure 155/119, oxygen saturation 98 on 5 L nasal cannula. HEENT: Head normocephalic, no trauma. PERRLA. Neck: Neck is supple. No JVD. No masses. Central trachea. Chest: Decreased breath sounds globally with prolonged expiratory phase. Abdomen: Soft, nontender, nondistended. No hepatosplenomegaly. Chest: Decreased breath sounds globally with prolonged expiratory phase. I do not hear any wheezing today. Abdomen: Soft, nontender, nondistended. No hepatosplenomegaly. Extremities: No edema, no clubbing, no cyanosis. Cardiovascular: Irregularly irregular rate and rhythm. Neurological examination: Patient is awake. He is oriented x3. He is following commands. I do not see any focal deficits. LABORATORY: WBC 7.1, hemoglobin 11.2, hematocrit 36.6, platelets 279. Sodium 141, potassium 5, chloride 101, bicarbonate 31. BUN 16, creatinine 0.7, glucose 119, calcium 9. AST 11, ALT 6, alkaline phosphatase 51 and total protein 6. ASSESSMENT AND PLAN: 1. Chronic obstructive pulmonary disease exacerbation. I will decrease the dose of the steroids. He is not wheezing today for me, and I will continue with oxygen supplementation and breathing treatment with Xopenex. 2. Acute on chronic hypoxemic respiratory failure due to #1. As per the patient, he is not on home oxygen, but probably he will. 3. Encephalopathy, resolved. 4. Acute kidney injury, resolved. 5. Elevated cardiac enzymes, resolved. 6. Atrial fibrillation with rapid ventricular response. He was transferred to the progressive care unit. He has been placed on Cardizem drip. I will give him a dose of Lovenox therapeutic. I will wait for Cardiology to see the patient. 7. Deep vein thrombosis prophylaxis with Lovenox. 8. Tobacco abuse. This patient has been highly advised against tobacco use. He is still smoking. I will continue with daily cessation education. cc: Rosalio Ayers MD
[2019-11-18] MEDS ORDERED: LOVENOX SUBQ SCH (14:00)
--- NOTE | 2019-11-18 14:36 | CONSULTATION ---
DATE OF CONSULTATION: 11/18/2019 IMPRESSION: 1. Paroxysmal atrial fibrillation. Patient in sinus rhythm on admission but converted to atrial fibrillation with moderate tachycardia during hospital stay for chronic obstructive pulmonary disease. He has history of previous atrial fibrillation the past. 2. Chronic obstructive pulmonary disease, severe. 3. Hypertensive cardiovascular disease. 4. Mild aortic stenosis by current echocardiography. 5. Chronic ongoing cigarette use at a rate of 1-1/2 pack of cigarettes per day. 6. Obstructive sleep apnea. RECOMMENDATIONS: 1. Rate control with long-acting diltiazem to be continued. 2. Initiate Multaq 400 mg p.o. b.i.d. and discontinue IV amiodarone. 3. Initiate anticoagulation with Lovenox. 4. If atrial fibrillation persists, consider transesophageal echocardiogram/cardioversion Wednesday. HISTORY: This 64-year-old, white male with past history of previous atrial fibrillation, COPD, hypertensive cardiovascular disease, sleep apnea, and chronic ongoing cigarette use, was admitted recently with rather vague symptoms. He relates he has had some tendency for cough and vomiting. There was some shortness of breath. He denies chest pain. He describes his symptoms prior to admission quite vaguely and is a poor historian. He came to the emergency room for evaluation and was noted to have hypoxemia. He was felt to have COPD exacerbation and was admitted for further care. While monitored on telemetry, he developed atrial fibrillation. He was unaware of his arrhythmia and denies palpitations or chest discomfort with this. PAST MEDICAL HISTORY: 1. COPD, severe. 2. Hypertensive cardiovascular disease. 3. Hyperlipidemia. 4. Previous atrial fibrillation. 5. Obstructive sleep apnea. PAST SURGICAL HISTORY: Includes previous cervical fusion and unspecified back surgery. ALLERGIES: He is allergic or intolerant to acetaminophen and hydrocodone. MEDICATIONS PRIOR TO ADMISSION: As listed. SOCIAL HISTORY: He continues to smoke 1-1/2 pack cigarettes per day. He does not use alcohol. FAMILY HISTORY: Negative for premature coronary disease. REVIEW OF SYSTEMS: Pulmonary: Noteworthy for chronic dyspnea as well as some cough. Gastrointestinal: Noteworthy for some vomiting and nausea prior to admission, which has resolved. Constitutional: Negative for fever. Remainder of review of systems negative/noncontributory with 14 total systems reviewed. PHYSICAL EXAMINATION: General: This is a older white male in no distress. He appears older than stated age. Vital signs: Blood pressure 120/85, heart rate 120 and irregular with ECG monitor showing atrial fibrillation. Oxygen saturation 98%. HEENT: Extraocular movements appear intact. Mucous membranes are moist. Neck: Supple without jugular venous distention. There are no carotid bruits. Chest: Auscultation of the chest reveals a few scattered rhonchi. Cardiac: Reveals an irregular rate and rhythm without appreciable murmur or gallop. Abdomen: Soft. Bowel sounds normal. Extremities: Without edema. Neurologic: Reveals him to be alert and fully oriented. Speech is fluent. Moves all 4 extremities equally well. DIAGNOSTIC DATA: Admission 12 lead electrocardiogram demonstrates sinus bradycardia with occasional premature atrial complex and nonspecific T-wave abnormality. A 12 lead electrocardiogram today demonstrates atrial fibrillation with moderate tachycardia and nonspecific T-wave abnormality. Echocardiography this admission demonstrates mild aortic valve stenosis with mild aortic regurgitation, very mild mitral regurgitation, mild tricuspid regurgitation with mild pulmonary hypertension by Doppler and mild concentric left ventricular hypertrophy with estimated ejection fraction at least 70%. cc: Ramesh Martinez MD
[2019-11-18] MEDS: XOPENEX NEB INH SCH ×2 (16:24→21:25)
--- NOTE | 2019-11-18 19:56 | EKG Report ---
Test Performed on : 11/18/2019 08:38:30 AM Test Reason : A FIB Blood Pressure : / mmHG Vent. Rate : 127 BPM Atrial Rate : 138 BPM P-R Int : 000 ms QRS Dur : 088 ms QT Int : 276 ms P-R-T Axes : 000 074 255 degrees QTc Int : 401 ms Atrial fibrillation. with rapid ventricular response. ST & T wave abnormality, consider inferior ischemia Abnormal ECG When compared with ECG of 16-NOV-2019 07:03, Atrial fibrillation. has replaced Sinus rhythm. Vent. rate has increased BY 74 BPM Non-specific change in ST segment in Inferior leads Inverted T waves have replaced nonspecific T wave abnormality in Inferior leads Confirmed by Stephany PHELAN, Alfonso Bradshaw ([id number]) on 11/20/2019 4:47:50 PM
[2019-11-18] MEDS: SINGULAIR PO SCH (20:01)
[2019-11-18] MEDS: MULTAQ PO SCH (20:02)
[2019-11-19] MEDS: LOVENOX SUBQ SCH ×2 (00:08→12:43)
[2019-11-19] MEDS ORDERED: CARDIZEM PO ONE (05:06)
--- NOTE | 2019-11-19 07:02 | Diag Imaging Result Doc PS360 ---
EXAM: CHEST-PORTABLE 11/19/2019 HISTORY: dyspnea TECHNIQUE: AP portable at 0553 COMMENT: Compared to 11/15/2019 there is increased coarse opacity in the medial portion of the right lower lobe. The lungs are actually better expanded than they were on the previous study. IMPRESSION: Atelectasis versus pneumonia right lower lobe. Electronically signed by Haile Weinstein 11/19/2019 7:00 AM
[2019-11-19] MEDS ORDERED: ROCEPHIN 1 GM in NS 50 ML IV SCH (07:45)
[2019-11-19 07:46] LABS: AGAP 8; BUN 17 mg/dL (8-22); CALCIUM 9.3 mg/dL (8.8-10.2); CHLORIDE 96 mmol/L (98-107); COSMO 278; CREATININE 0.7 mg/dL (0.7-1.2); ESTIMATED GFR > 60; GLUCOSE 84 mg/dL (70-104); IRON SATURATION 18 %; MAGNESIUM 1.8 mg/dL (1.5-2.7); PHOSPHORUS 1.8 mg/dL (2.7-4.5); POTASSIUM 4.9 mmol/L (3.5-5.1); SODIUM 139 mmol/L (136-145); TCO2 35 mmol/L (25-35); TIBC 310 ug/dL; TOTAL IRON 57 ug/dL (53-167); UNBOUND IRON 253 ug/dL (112-346)
[2019-11-19] MEDS: XOPENEX NEB INH SCH ×3 (07:51→22:28)
[2019-11-19 08:05] LABS: FERRITIN 46 ng/mL (30-400)
[2019-11-19] MEDS: ZOSYN 3.375 GM in NS 50 ML IV SCH ×3 (08:25→20:19)
[2019-11-19] MEDS: SOLU-MEDROL IV SCH (08:49)
[2019-11-19] MEDS: PRAVACHOL PO SCH (08:50)
[2019-11-19] MEDS: EFFEXOR XR PO SCH (08:50)
[2019-11-19] MEDS: MULTAQ PO SCH ×2 (08:50→20:19)
[2019-11-19] MEDS: ATARAX PO SCH (08:50)
[2019-11-19] MEDS: CARDIZEM CD PO SCH (08:51)
[2019-11-19] MEDS: FLONASE NAS SCH (08:52)
--- NOTE | 2019-11-19 13:02 | PROGRESS NOTE ---
DATE: 11/19/2019 SUBJECTIVE: The patient was still having episodes of atrial fibrillation during the morning, but it looks like his rate is better now. Cardiology Department on board. X-ray showed right lower lobe atelectasis versus pneumonia. He has been placed on antibiotics. He is still requiring 5 L of oxygen. Phosphorus seems to be a little bit low. I will replace it. OBJECTIVE: Vital Signs: Temperature 98.1 degrees, pulse 84, respiratory rate 20, blood pressure 107/82, oxygen saturation 95% on 5 L of nasal cannula. HEENT: Head normocephalic. No trauma. PERRLA. Neck: Supple. No JVD. No masses. Central trachea. Abdomen: Soft, nontender, nondistended. No hepatosplenomegaly. Chest: Decreased breath sounds globally with prolonged expiratory phase. Cardiovascular: Irregularly irregular rate and rhythm when I examined him this morning with tachycardia. Neurological: The patient is awake. He was oriented. He was following commands. No focal deficits. LABORATORY DATA: Sodium 139, potassium 4.9, chloride 96, bicarbonate 35, BUN 17, creatinine 0.7, glucose 84, calcium 9.3. Phosphorus 1.8, magnesium 1.8. ASSESSMENT AND PLAN: 1. Chronic obstructive pulmonary disease exacerbation. This has been getting better. Hopefully tomorrow, will stop the steroids intravenous, continue with Xopenex, continue with oxygen supplementation as well. 2. Acute on chronic hypoxemic respiratory failure due to #1. There is a possibility of pneumonia on the right side. The patient has been placed on antibiotics. As per the patient, he is not on home oxygen, but probably he will. 3. Encephalopathy, resolved. 4. Acute kidney injury, resolved. 5. Atrial fibrillation with rapid ventricular response, seems to be improving. Cardiology on board. 6. Deep vein thrombosis prophylaxis with Lovenox, therapeutic dose because of the atrial fibrillation. 7. Tobacco abuse. This patient has been highly advised against tobacco use. Will continue with daily cessation education. 8. Elevated cardiac enzymes, resolved. 9. Possible right lower lobe pneumonia. I have started this patient on antibiotics. cc: Rosalio Ayers MD
[2019-11-19] MEDS ORDERED: LANOXIN IV ONE ×2 (13:16→18:00)
[2019-11-19] MEDS ORDERED: SODIUM PHOSPHATE 15 MMOL in NS 250 ML IV ONE (13:30)
[2019-11-19] MEDS: FOLIC ACID PO SCH (14:36)
--- NOTE | 2019-11-19 14:50 | PROGRESS NOTE ---
DATE: 11/19/2019 SUBJECTIVE: The patient reports feeling better. Denies shortness of breath. He continues in atrial fibrillation with moderate tachycardia. OBJECTIVE: Vital Signs: Blood pressure 107/82, heart rate 130 and irregular with ECG monitor showing atrial fibrillation, oxygen saturation 95% on nasal cannula oxygen. Neck: There is no significant jugular venous distention. Respiratory: Auscultation of the chest reveals a few scattered rhonchi. Cardiac: Irregular tachycardia without appreciable murmur or gallop. Extremities: Without edema. LABORATORY DATA: Includes sodium 139, potassium 4.9, chloride 96, carbon dioxide 35, BUN 17, creatinine 0.7, glucose 84. IMPRESSION: 1. Atrial fibrillation, recurrent. Patient initially in sinus rhythm on admission, but converted to atrial fibrillation with moderate tachycardia. 2. Chronic obstructive pulmonary disease, severe. 3. Hypertensive cardiovascular disease. 4. Mild aortic stenosis by recent echocardiography. 5. Chronic ongoing cigarette use at a rate of 1 to 1-1/2 packs of cigarettes per day. RECOMMENDATIONS: 1. Continue Multaq 40 mg p.o. b.i.d. 2. Continue diltiazem long-acting 180 mg p.o. daily. 3. Continue anticoagulation with Lovenox. 4. Initiate digoxin to improve rate control. 5. If atrial fibrillation persists, may consider JESS/cardioversion. It may be better to give him another 24 hours on Multaq, and consider this for Wednesday. cc: Ramesh Martinez MD
[2019-11-19] MEDS: AMBIEN PO PRN (20:18)
[2019-11-19] MEDS: SINGULAIR PO SCH (20:19)
[2019-11-20] MEDS: LOVENOX SUBQ SCH ×2 (00:56→12:37)
[2019-11-20] MEDS: ZOSYN 3.375 GM in NS 50 ML IV SCH ×4 (00:56→20:51)
[2019-11-20 06:31] LABS: AGAP 8; BUN 20 mg/dL (8-22); CALCIUM 8.8 mg/dL (8.8-10.2); CHLORIDE 99 mmol/L (98-107); COSMO 286; CREATININE 0.7 mg/dL (0.7-1.2); ESTIMATED GFR > 60; GLUCOSE 95 mg/dL (70-104); MAGNESIUM 2.2 mg/dL (1.5-2.7); PHOSPHORUS 2.6 mg/dL (2.7-4.5); POTASSIUM 4.4 mmol/L (3.5-5.1); SODIUM 142 mmol/L (136-145); TCO2 35 mmol/L (25-35)
[2019-11-20] MEDS: CARDIZEM CD PO SCH (08:02)
[2019-11-20] MEDS: FOLIC ACID PO SCH (08:02)
[2019-11-20] MEDS: MULTAQ PO SCH ×2 (08:02→20:51)
[2019-11-20] MEDS: EFFEXOR XR PO SCH (08:03)
[2019-11-20] MEDS: PRAVACHOL PO SCH (08:03)
[2019-11-20] MEDS: LANOXIN IV SCH (08:04)
[2019-11-20] MEDS: SOLU-MEDROL IV SCH (08:04)
[2019-11-20] MEDS: ATARAX PO SCH (08:04)
[2019-11-20] MEDS: FLONASE NAS SCH (08:41)
[2019-11-20] MEDS: XOPENEX NEB INH SCH ×3 (11:51→22:32)
--- NOTE | 2019-11-20 12:55 | PROGRESS NOTE ---
DATE: 11/20/2019 SUBJECTIVE: When I evaluated this patient, he was sleeping but arousable. He is still in atrial fibrillation with rapid ventricular response. He spent a good night after getting some Ambien. Cardiology on board. I will continue with the same management. It looks like he probably may have a JESS cardioversion tomorrow if the heart rate is about the same. Pending cardiology recommendations today. OBJECTIVE: Vital Signs: Temperature 97.2 degrees, pulse 130, respiratory rate 16, blood pressure 93/74, oxygen saturation 97% on 5 L nasal cannula. HEENT: Head normocephalic. No trauma. PERRLA. Neck: Supple. No JVD. No masses. Central trachea. Abdomen: Soft, nontender, nondistended. No hepatosplenomegaly. Chest: Decreased breath sounds globally with prolonged expiratory phase. Cardiovascular: Irregularly irregular rate and rhythm, tachycardic. Neurological Examination: The patient is sleepy but arousable. He is following commands. He seems to be confused on and off though, which I believe he is his baseline. Laboratory: Sodium 142, potassium 4.4, chloride 99, bicarbonate 35, BUN 20, creatinine 0.7, glucose 95, calcium 8.8, phosphorus 2.6, magnesium 2.2. ASSESSMENT AND PLAN: 1. Chronic obstructive pulmonary disease exacerbation. This is better. I will continue with intravenous steroids today and hopefully tomorrow, we will stop it and put him on oral treatment if he is doing fine. Continue with oxygen supplementation and Xopenex. 2. Acute on chronic hypoxemic respiratory failure due to #1 with possible pneumonia on the right side. Continue with antibiotics. Continue breathing treatment and oxygen supplementation. 3. Encephalopathy, resolved, although he has been having some confusion on and off, which I believe is his baseline. 4. Acute kidney injury, resolved. 5. Atrial fibrillation with rapid ventricular response. It looks like his heart rate is still elevated so probably cardiology department will do a transesophageal echocardiogram cardioversion in the morning. 6. Deep vein thrombosis prophylaxis with Lovenox, therapeutic dose because of the atrial fibrillation. 7. Tobacco abuse. This patient has been highly advised against tobacco use. I will continue with daily cessation education. 8. Elevated cardiac enzymes, resolved. 9. Likely right lower lobe pneumonia. Continue with antibiotics. 10. Insomnia, much better after putting this patient back on Ambien. cc: Rosalio Ayers MD
[2019-11-20] MEDS ORDERED: LANOXIN IV ONE (14:57)
--- NOTE | 2019-11-20 15:22 | PROGRESS NOTE ---
DATE: 11/20/2019 SUBJECTIVE: Patient denies chest discomfort, shortness of breath or palpitations on supplemental oxygen per nasal cannula. He continues in atrial fibrillation with moderate tachycardia. OBJECTIVE: Blood pressure 114/66, heart rate 134 and irregular with ECG monitor showing atrial fibrillation. Oxygen saturation 97% on nasal cannula oxygen. There is no significant jugular venous distention. Auscultation of the chest reveals diminished breath sounds diffusely. No rales could be appreciated. There are a few expiratory rhonchi.Cardiac: Reveals a irregular rate and rhythm without appreciable murmur or gallop. There is no evidence of peripheral edema. LABORATORY DATA: Includes a sodium 142, potassium 4.4, chloride 99, carbon dioxide 35, BUN 20, creatinine 0.8. Glucose 95. IMPRESSION: 1. Atrial fibrillation, recurrent. Patient continues with moderate tachycardia response to atrial fibrillation. 2. Chronic obstructive pulmonary disease, severe. 3. Hypertensive cardiovascular disease. 4. Mild aortic stenosis by recent echocardiography. 5. Chronic ongoing cigarette use at a rate of 1 to 1-1/2 packs of cigarettes per day. RECOMMENDATIONS: 1. Continue Multaq 400 mg p.o. b.i.d. 2. Continue diltiazem long-acting at current dose. 3. Supplement digoxin 0.25 mg IV. 4. Continue anticoagulation with Lovenox. 5. If atrial fibrillation persists, consider JESS cardioversion. cc: Ramesh Martinez MD
[2019-11-20] MEDS: SINGULAIR PO SCH (20:51)
[2019-11-21] MEDS: LOVENOX SUBQ SCH (00:57)
[2019-11-21] MEDS: ZOSYN 3.375 GM in NS 50 ML IV SCH ×4 (00:58→20:13)
[2019-11-21 05:33] LABS: HEMATOCRIT 34.8 % (42.0-52.0); HEMOGLOBIN 10.4 g/dL (14.0-18.0); IMM GRAN# 0.03 X1000 (0.0-0.04); IMM GRAN% 0.5 % (0.0-0.5); LYMPH# 0.91 X1000 (1.2-3.4); LYMPH% 15.9 % (20.5-51.1); MCH 31.2 PG (27-31); MCHC 29.9 g/dL (33-37); MCV 104.5 FL (81-99); MONO# 0.48 X1000 (0.11-0.59); MONO% 8.4 % (1.7-9.3); MPV 9.6 FL (7.4-10.4); NEUT% 75.2 % (42.2-75.2); PLT 300 X1000 (130-400); RBC 3.33 XMIL (4.7-6.1); RDW 16.3 % (11.5-14.5); WBC 5.72 X1000 (4.8-10.8)
[2019-11-21 05:55] LABS: AGAP 5; BUN 27 mg/dL (8-22); CHLORIDE 98 mmol/L (98-107); COSMO 284; CREATININE 0.8 mg/dL (0.7-1.2); ESTIMATED GFR > 60; GLUCOSE 82 mg/dL (70-104); POTASSIUM 4.7 mmol/L (3.5-5.1); SODIUM 140 mmol/L (136-145); TCO2 37 mmol/L (25-35)
[2019-11-21] MEDS: EFFEXOR XR PO SCH (08:24)
[2019-11-21] MEDS: ATARAX PO SCH (08:24)
[2019-11-21] MEDS: PRAVACHOL PO SCH (08:24)
[2019-11-21] MEDS: FOLIC ACID PO SCH (08:25)
[2019-11-21] MEDS: LANOXIN IV SCH (08:25)
[2019-11-21] MEDS: CARDIZEM CD PO SCH (08:25)
[2019-11-21] MEDS: MULTAQ PO SCH ×2 (08:25→20:13)
[2019-11-21] MEDS: FLONASE NAS SCH (08:25)
[2019-11-21] MEDS: SOLU-MEDROL IV SCH (08:25)
[2019-11-21] MEDS ORDERED: XYLOCAINE 2% VISCOUS ONE (09:58)
[2019-11-21] MEDS ORDERED: ANESTHESIA PB SET 88 IN 5742 ONE (11:07)
[2019-11-21] MEDS ORDERED: NS 1,000 ML ONE (11:07)
[2019-11-21 11:08] LABS: INR 1.02; PROTIME 13.5 Seconds (11.0-16.0)
[2019-11-21 11:09] LABS: PTT 29.9 Seconds (22.3-41.8)
[2019-11-21] MEDS ORDERED: FENTANYL ONE (11:11)
[2019-11-21] MEDS ORDERED: DIPRIVAN 1% ONE (11:11)
[2019-11-21] MEDS ORDERED: XYLOCAINE-MPF 2% ONE (11:31)
--- NOTE | 2019-11-21 12:07 | PROGRESS NOTE ---
DATE: 11/21/2019 SUBJECTIVE: The patient is completely awake and alert. He is following commands. His heart rate is still elevated, atrial fibrillation and RVR. Probably, this patient will go for a JESS cardioversion today. OBJECTIVE: Vital Signs: Temperature 98.3 degrees, pulse 118, respiratory rate 16, blood pressure 128/90, and oxygen saturation 98 on 5 L nasal cannula. HEENT: Head normocephalic. No trauma. PERRLA. Neck: Supple. No JVD. No masses. Central trachea. Abdomen: Soft, nontender, and nondistended. No hepatosplenomegaly. Chest: Decreased breath sounds globally with prolonged expiratory phase. Cardiovascular: Irregularly irregular rate and rhythm. Tachycardic. Neurological: The patient is awake and alert. He is following commands. He seems to be confused on and off though, which I believe it is his baseline. LABORATORY: WBC 5.7, hemoglobin 10.4, hematocrit 34.8, and platelets 300,000. Sodium 140, potassium 4.7, chloride 98, bicarbonate 37, BUN 27, creatinine 0.8, glucose 82, and calcium 9. ASSESSMENT AND PLAN: 1. Atrial fibrillation with RVR. His heart rate is still elevated. Cardiology Department placed this patient NPO. Likely, he will have JESS cardioversion today. We will continue to monitor. 2. Chronic obstructive pulmonary disease exacerbation. This is better. I will decrease the dose of the IV steroids to 20 IV daily since he is NPO. Tomorrow, hopefully, we will put this patient on p.o. treatment. 3. Acute on chronic hypoxemic respiratory failure due to #1 and possible pneumonia on the right side. Continue with antibiotics, breathing treatment, and oxygen supplementation. 4. Encephalopathy, resolved. I do believe this is his baseline. 5. Acute kidney injury, resolved. 6. Deep vein thrombosis prophylaxis with Lovenox, therapeutic dose due to atrial fibrillation. 7. Tobacco abuse. This patient has been highly advised against tobacco use. He is still smoking. I will continue with daily cessation education. Likely, he will need to go home with oxygen. 8. Elevated cardiac enzymes, resolved. 9. Likely, right lower lobe pneumonia. Continue with antibiotics. 10. Insomnia, better after putting this patient back on Ambien. cc: Rosalio Ayers MD
--- NOTE | 2019-11-21 13:17 | EKG Report ---
Test Performed on : 11/21/2019 12:22:17 PM Test Reason : post JESS/CVN Blood Pressure : / mmHG Vent. Rate : 052 BPM Atrial Rate : 052 BPM P-R Int : 136 ms QRS Dur : 094 ms QT Int : 360 ms P-R-T Axes : 054 056 200 degrees QTc Int : [address] & T wave abnormality, consider lateral ischemia Abnormal ECG When compared with ECG of 18-NOV-2019 08:38, Sinus rhythm. has replaced Atrial fibrillation. Vent. rate has decreased BY 75 BPM Nonspecific T wave abnormality has replaced inverted T waves in Inferior leads Confirmed by Stephany PHELAN, Alfonso Bradshaw ([id number]) on 11/22/2019 9:25:01 AM
[2019-11-21] MEDS: XOPENEX NEB INH SCH ×3 (15:43→22:28)
[2019-11-21] MEDS: AMBIEN PO PRN (20:13)
[2019-11-21] MEDS: SINGULAIR PO SCH (20:14)
[2019-11-21] MEDS: ELIQUIS PO SCH (20:14)
--- NOTE | 2019-11-22 00:20 | ECHO REPORT ---
ORDER DATE: 11/21/2019 SUMMARY: After intravenous sedation with propofol per Anesthesiology, I passed the transesophageal probe into the patient's esophagus without difficulty. Transesophageal echocardiography was subsequently performed without incident and demonstrated: 1. The aortic valve demonstrates moderate sclerotic change and is trileaflet. Reduced aortic valve leaflet mobility is demonstrated. Planimetry of the aortic valve demonstrated values of 1.4 to 1.6 cm2. Mild aortic stenosis is suggested. There is trace aortic regurgitation. Mitral, tricuspid, and pulmonic valves are without evidence of structural abnormality with mild mitral regurgitation. The aortic root is normal in size. 2. Normal left ventricular chamber size with mild concentric left ventricular hypertrophy is demonstrated. The estimated left ventricular ejection fraction appears to be at least 65%. No regional wall abnormalities evident. Left atrium, right atrium, right ventricle are normal in size with grossly preserved right ventricular systolic function. All 4 cardiac chambers and left atrial appendage appear free of intracardiac thrombus. The interatrial septum appears intact without evidence on color Doppler of interatrial shunting. 3. No pericardial effusion. 4. Moderate focal plaquing demonstrated in the upper descending thoracic aorta. cc: Ramesh Mratinez MD
--- NOTE | 2019-11-22 00:23 | CARDIAC CATH REPORT ---
PROCEDURE NAME: - SUMMARY: The patient already sedated per Anesthesiology with propofol for transesophageal echocardiography performed immediately prior to cardioversion. There is no evidence of intracardiac thrombus. Patient subsequently underwent synchronous direct current cardioversion with 200 joules biphasic, converting atrial fibrillation to sinus bradycardia. The patient tolerated the procedure without apparent complications. CONCLUSIONS: Successful cardioversion of atrial fibrillation to sinus rhythm. cc: Ramesh Martinez MD
[2019-11-22] MEDS: ZOSYN 3.375 GM in NS 50 ML IV SCH ×3 (01:37→13:13)
--- NOTE | 2019-11-22 08:28 | Diag Imaging Result Doc PS360 ---
EXAM: CHEST-2 VIEWS 11/22/2019 HISTORY: hypoxia TECHNIQUE: PA and lateral chest COMMENT: There is platelike opacity in the medial right lower lobe which was also present on 11/19/2019. There may be slightly more volume loss compared to the previous study. The heart size and pulmonary vascularity are within normal limits. There is blunting of the posterior costophrenic sulci bilaterally. IMPRESSION: Atelectasis versus pneumonia right lower lobe. Bilateral pleural effusions. Electronically signed by Haile Weinstein 11/22/2019 8:25 AM
[2019-11-22] MEDS: ATARAX PO SCH (08:47)
[2019-11-22] MEDS: MULTAQ PO SCH (08:47)
[2019-11-22] MEDS: ELIQUIS PO SCH (08:47)
[2019-11-22] MEDS: EFFEXOR XR PO SCH (08:48)
[2019-11-22] MEDS: PRAVACHOL PO SCH (08:48)
[2019-11-22] MEDS: FLONASE NAS SCH (08:49)
[2019-11-22] MEDS: CARDIZEM CD PO SCH ×2 (08:49→10:00)
[2019-11-22] MEDS: FOLIC ACID PO SCH (08:50)
[2019-11-22] MEDS ORDERED: SOLU-MEDROL IV SCH (09:00)
[2019-11-22] MEDS: XOPENEX NEB INH SCH ×2 (09:23→16:01)
--- NOTE | 2019-11-22 13:16 | PROGRESS NOTE ---
DATE: 11/22/2019 SUBJECTIVE: The patient continues without chest discomfort or shortness of breath, on supplemental oxygen per nasal cannula. He continues in sinus rhythm. He has had some tendency for sinus bradycardia. OBJECTIVE: Vital Signs: Blood pressure 122/65, heart rate 64, oxygen saturation 98% on nasal cannula oxygen. Neck: There is no significant jugular venous distention. Chest: Clear to auscultation bilaterally. Cardiac: Regular rate and rhythm without appreciable murmur or gallop. Extremities: There is no evidence of peripheral edema. LABORATORY DATA: Includes a white blood cell count of 5.72, hematocrit 34.8, hemoglobin 10.4, platelet count 300,000. Sodium 140, potassium 4.7, chloride 98, carbon dioxide 37, BUN 27, creatinine 0.8, glucose 82. IMPRESSION: 1. Recent persistent atrial fibrillation. The patient continues in sinus rhythm following transesophageal echocardiogram cardioversion yesterday, on Multaq and diltiazem. He has had some tendency for bradycardia. 2. Chronic obstructive pulmonary disease, severe. 3. Hypertensive cardiovascular disease. 4. Mild aortic stenosis by recent echocardiography. 5. Chronic ongoing cigarette use. RECOMMENDATIONS: 1. Continue Multaq 400 mg p.o. b.i.d. 2. Continue Eliquis 5 mg p.o. b.i.d. 3. Reduce long-acting diltiazem to 120 mg p.o. daily. 4. Smoking cessation strongly advised. 5. Reasonable for the patient to be discharged soon from a cardiovascular standpoint. cc: Ramesh Martinez MD
[2019-11-22 15:29] VITALS: BP 117/68
--- NOTE | 2019-11-22 16:19 | DISCHARGE SUMMARY ---
ADMISSION DATE: 11/16/2019 DISCHARGE DATE: 11/22/2019 DISCHARGE DIAGNOSES: 1. Atrial fibrillation with rapid ventricular response. 2. Chronic obstructive pulmonary disease exacerbation. 3. Acute on chronic hypoxemic respiratory failure. 4. Pneumonia has been ruled out. 5. Encephalopathy. 6. Acute kidney injury, resolved. 7. Tobacco use and abuse. 8. Elevated cardiac enzymes, resolved. 9. Insomnia. PROCEDURES PERFORMED: 1. Chest x-ray dated 11/15/2019, impression: No evidence of acute pathology by plain radiograph. 2. Echocardiogram dated 11/16/2019 conclusion: Moderately sclerosed aortic valve, probably 3 leaflet with mild aortic stenosis and mild aortic regurgitation, very mild mitral regurgitation. 3. Mild tricuspid regurgitation with mild pulmonary hypertension by Doppler, mild concentric left hypertrophy with estimated ejection fraction of at least 70%, mild left atrial enlargement. 4. Chest x-ray dated 11/19/2019, impression: Atelectasis versus pneumonia in the right lower lobe. Successful cardioversion of the atrial fibrillation to sinus rhythm, dated 11/21/2019. 5. Chest x-ray dated 11/22/2019, atelectasis versus pneumonia at the level of the right lower lobe, bilateral pleural effusion. HOSPITAL COURSE: 64-year-old male, poor historian. It was difficult to get his past medical history and even his symptoms upon admission, but he was coming in because of shortness of breath. He denied any fever, chills, or body aches. He has a history of seasonal allergies and chronic obstructive pulmonary disease. He is still smoking. Apparently, he also has sleep apnea and he uses a CPAP machine at night. The patient presented with wheezing that got a little bit better after treatment. However, he was requiring oxygen. He was admitted to the medical floor and then he started having atrial fibrillation with RVR. He was placed on Cardizem drip. Cardiology Department evaluated this patient and the rate has been controlled but never came back to normal sinus. So on 11/21/2019, we did a cardioversion. We started treating this patient initially for pneumonia at the level of the right lower lobe and he received Zosyn for 4 days but his white blood cell count has been completely normal and he is not coughing up phlegm or having fever or chills. I do not believe he has pneumonia and probably this is atelectasis. The patient has been improving on a daily basis and yesterday was cardioverted. His heart rate after cardioversion was mostly in the 50s but then it normalized. The patient will be discharged home today. All the instructions were given. He has been placed on anticoagulation. He understands the risk of anticoagulation as well. Cardiology Department evaluated this patient during this hospitalization. I have followed this patient closely. We recommended to follow up with Dr. Martinez in 1 month and follow with his primary care doctor in 1 week. DISCHARGE PHYSICAL EXAMINATION: Vital signs: Temperature 97.6 degrees, pulse 61, respiratory rate 21, blood pressure 117/68. Oxygen saturation 98 on nasal cannula. HEENT: Head normocephalic. PERRLA. Neck: Supple. No JVD. No masses. Central trachea. Chest: Decreased breath sounds at the bases with prolonged expiratory phase. Abdomen: Soft, nontender, nondistended. No hepatosplenomegaly. Extremities: No edema. No clubbing. No cyanosis. Neurological: The Patient is awake, alert. He is oriented. No focal deficits. LABORATORY: No lab work done today. Laboratory from yesterday: Sodium 140, potassium 4.7, chloride 98, bicarbonate 37, BUN 27, creatinine 0.8, glucose 82, calcium 9. DISCHARGE MEDICATIONS: Eliquis 5 mg p.o. b.i.d., Bentyl 20 mg p.o. b.i.d., Cardizem CD 120 mg p.o. daily, Multaq 400 mg p.o. b.i.d. Flonase as directed, Advair 250/50 Diskus as directed daily, folic acid 1 mg p.o. daily, hydroxyzine 25 mg p.o. daily, Medrol Dosepak 4 mg p.o. as directed, montelukast 10 mg p.o. at bedtime, pravastatin 80 mg p.o. daily, Effexor XR 150 mg p.o. daily, and Ambien 10 mg p.o. at bedtime. DISPOSITION: Again this patient is status post cardioversion yesterday. He seems to be feeling much better. He wants to go home. We evaluated this patient for home O2 evaluation and he qualifies so he will go home with oxygen. FOLLOWUP: Like I mentioned before follow up with Cardiology Department in 1 month and follow up with his primary care doctor in 1 week. TIME DISCHARGING THIS PATIENT: Thirty-two minutes. cc: Rosalio Ayers MD
[2019-11-23] MEDS ORDERED: CARDIZEM CD PO SCH (09:00)
== END 2019-11-22 17:15 | disposition home or self-care (01) | DRG 190 ==
LOC: ED 19:43 → SUATTDRO 11-16 03:54 → 4N 11-16 03:54 → 2N 11-18 03:42
PROVIDERS: ATTEND Internal Medicine